=== PATIENT | male | born 1990 | race African-American/Black ===

== ENCOUNTER 2016-08-13 02:29 | Emergency (ER) | payer SELFPAY ==
[~2016-08-13] VITALS: Ht 160 cm; Wt 63.8 kg
[~2016-08-13 02:29] MED LIST: AUGMENTIN875 MG PO; IBUPROFEN800 MG PO; MOTRIN800 MG PO; PERCOCET 5/31 TABLET PO; ULTRAM50 MG PO; ZITHROMAX250 MG PO
[2016-08-13 04:07] LABS: INFLUENZA A VIRAL ANTIGEN POSITIVE; INFLUENZA B VIRAL ANTIGEN NEGATIVE
[2016-08-13 04:24] VITALS: BP 123/63
== END 2016-08-13 04:27 | disposition home or self-care (01) ==
LOC: EME 02:29
PROVIDERS: Physician Assistant
DX: J10.1 Influenza due to other identified influenza virus with other respiratory manifestations (principal)
CPT/HCPCS: 71020; 87502; 99281; 99283

== ENCOUNTER 2017-09-24 23:45 | Emergency (ER) | payer OTHER ==
[~2017-09-24] VITALS: Ht 170.2 cm; Wt 68.5 kg
[2017-09-24 23:55] VITALS: BP 156/99
[2017-09-25] MEDS ORDERED: MOTRIN800 MG PO (03:00)
[2017-09-25] MEDS ORDERED: NORCO 5/3251 TABLET PO (03:00)
== END 2017-09-25 04:02 | disposition home or self-care (01) ==
LOC: EME 23:45
DX: S93.401A Sprain of unspecified ligament of right ankle, initial encounter (principal); S93.501A Unspecified sprain of right great toe, initial encounter; W17.89XA Other fall from one level to another, initial encounter; F17.200 Nicotine dependence, unspecified, uncomplicated
CPT/HCPCS: 73610; 73630; 99281; 99283